=== PATIENT | female | born 1950 | race Two or more races ===

== ENCOUNTER 2019-07-14 13:43 | Emergency (ER) | payer OTHER ==
[~2019-07-14] VITALS: Ht 152.4 cm; Wt 68.9 kg
[~2019-07-14 13:43] MED LIST: HYZAAR; LIPITOR 10MG; METROPOLOL; SYNTHROID
[2019-07-14] MEDS ORDERED: METFORMIN HCL500 M3 PO (14:16)
[2019-07-14] MEDS ORDERED: ZESTORETIC 10-1 EACH PO (14:16)
[2019-07-14] MEDS ORDERED: BONIVA150 MG PO (14:17)
[2019-07-14] MEDS ORDERED: ATORVASTATIN CA10 MG PO (14:17)
[2019-07-14] MEDS ORDERED: ADVIL LIQUI-GE200 MG PO (17:42)
[2019-07-14] MEDS ORDERED: SKELAXIN800 MG PO (17:42)
== END 2019-07-14 18:01 | disposition home or self-care (01) ==
LOC: ER 13:43
DX: M54.5 Low back pain (principal)

== ENCOUNTER → 2019-07-18 | Outpatient (CLI) | payer OTHER ==
[~2019-07-18] MED LIST changes: +ADVIL LIQUI-GE200 MG PO; +ATORVASTATIN CA10 MG PO; +BONIVA150 MG PO; +METFORMIN HCL500 M3 PO; +SKELAXIN800 MG PO; +ZESTORETIC 10-1 EACH PO
== END | disposition home or self-care (01) ==
LOC: MAMO-SONO 08:15
DX: Z12.39 Encounter for other screening for malignant neoplasm of breast (principal); E13.69 Other specified diabetes mellitus with other specified complication; E03.8 Other specified hypothyroidism; M81.8 Other osteoporosis without current pathological fracture; I10 Essential (primary) hypertension; R92.0 Mammographic microcalcification found on diagnostic imaging of breast

== ENCOUNTER 2024-03-01 13:44 | Inpatient (IN) | payer OTHER ==
[~2024-03-01] VITALS: Ht 152.4 cm; Wt 69.9 kg
[2024-03-01] MEDS ORDERED: SYNTHROID75 MCG (14:03)
--- NOTE | 2024-03-01 14:11 | NUR ---
SE RECIBE PTE ALERTA Y ORIENTADO X3. LA MISMA REFIERE DOLOR ABDOMINAL Y VOMITOS EL DIOGO DE PAVEL. PTE ANSIOSA POR HABERSE TOMADO LUCI PEPCID A LAS [id number] Y OTRA A LAS [id number].
[2024-03-01] MEDS ORDERED: ONDANSETRON HCL 2 MG/ML VIAL IV ONE (14:30)
[2024-03-01] MEDS ORDERED: KETOROLAC TROMETHAMINE 30 MG VIAL IV ONE (14:30)
[2024-03-01] MEDS ORDERED: ONDANSETRON HCL 2 MG/ML VIAL ONE (14:43)
[2024-03-01] MEDS ORDERED: KETOROLAC TROMETHAMINE 30 MG VIAL ONE (14:43)
[2024-03-01] MEDS ORDERED: 0.9 % SODIUM CHLORIDE 500 ML IV ONE (14:45)
--- NOTE | 2024-03-01 16:00 | NUR ---
PTE EN ESTUDIO AL MOMENTO DE LA ASHLEY.
--- NOTE | 2024-03-01 16:31 | NUR ---
SE EDUCA ACERCA DE TX ORDENADO Y REFIERE ENTENDER. SE CANALIZA Y COLECTAN MUESTRAS DE LABORATORIO MEDIANTE MEDIDAS ASEPTICAS. SE ADMINISTRAN MEDICAMENTOS HAIR ORDEN MEDICA.
[2024-03-01 16:50] LABS: HEMATOCRIT 39.1 % (36.0-45.00); MEAN CELL VOLUME 93.1 fL (80.00-100.00); MEAN CORPUSCULAR HGB CONC 33.3 g/dl (32.0-36.0); PLATELET COUNT 306 K/uL (150-450); RED CELL DISTRIBUTION WIDTH 13.9 % (11.5-14.5)
[2024-03-01 17:00] LABS: ALBUMIN 4.2 gm/dL (3.4-5.0); BILIRUBIN TOTAL 0.7 mg/dL (0.3-1.2); BILIRUBIN,CONJUGATED 0.16 mg/dL (0.0-0.2); BILIRUBIN,UNCONJUGATED 0.54 mg/dL (0.0-0.6); CALCIUM 9.2 mg/dL (8.5-10.1); CREATININE SERUM 0.84 mg/dL (0.55-1.02); GFR 66.1; GLOBULINA 3.6 G/DL (2.4-3.5); POTASSIUM 3.27 mEq/L (3.5-5.1); TOTAL PROTEIN 7.8 gm/dL (6.4-8.2)
[2024-03-01 17:46] LABS: PH,URINE 5.5 (5.0-8.0); URINE APPEARANCE Clear; URINE BILIRRUBIN Negative (NEGATIVE); URINE BLOOD Moderate; URINE COLOR Yellow; URINE GLUCOSE Negative (NEGATIVE); URINE KETONE Trace (NEGATIVE); URINE LEUKOCYTE Moderate; URINE NITRATE Negative; URINE PROTEIN Negative (NEGATIVE)
[2024-03-01 17:58] LABS: URINE BACTERIA 1116.2 uL (0.0-1933); URINE WBC 473.1 uL (0.0-23.2)
[2024-03-01] MEDS ORDERED: CIPROFLOXACIN IN 5 % DEXTROSE 400 MG/200 ML PIGGYBAG IV ONE ×2 (18:27→18:30)
[2024-03-01] MEDS ORDERED: METRONIDAZOLE/SODIUM CHLORIDE 500 MG/100 ML PIGGYBACK IV ONE ×2 (18:27→18:30)
[2024-03-01] MEDS ORDERED: 0.9 % SODIUM CHLORIDE 50 ML IV SCH (23:00)
[2024-03-01] MEDS ORDERED: ENALAPRILAT DIHYDRATE 1.25 MG/ML VIAL IV PRN (23:15)
[2024-03-01] MEDS ORDERED: INSULIN LISPRO 1,000 UNIT/10 ML UNITS SUBCUTANEO PRN (23:15)
[2024-03-01] MEDS ORDERED: DEXTROSE 50 % IN WATER 0.5 G/ML DISP.SYRIN IV PRN (23:15)
[2024-03-02] MEDS ORDERED: MORPHINE SULFATE 4 MG/ML CARTRIDGE IV SCH (00:16)
[2024-03-02 00:21] LABS: INR 0.98; PARTIAL THROMBOPLASTIN TIME 22.5 SECONDS (22.0-34.0); PROTHROMBIN TIME 10.3 SECONDS (9.0-11.5)
[2024-03-02] MEDS ORDERED: METRONIDAZOLE/SODIUM CHLORIDE 500 MG/100 ML PIGGYBACK IV SCH (05:00)
[2024-03-02] MEDS ORDERED: CIPROFLOXACIN IN 5 % DEXTROSE 200 ML IV SCH (09:00)
[2024-03-03 06:18] LABS: HEMOGLOBIN 11.2 g/dL (12.0-15.00); MEAN CELL VOLUME 91.5 fL (80.00-100.00); MEAN CORPUSCULAR HEMOGLOBIN 31.1 pg (27.00-32.0); PLATELET COUNT 261 K/uL (150-450); RED BLOOD COUNT 3.61 M/uL (4.00-6.00); RED CELL DISTRIBUTION WIDTH 13.9 % (11.5-14.5)
[2024-03-03 06:51] LABS: ALBUMIN 3.1 gm/dL (3.4-5.0); BILIRUBIN TOTAL 0.81 mg/dL (0.3-1.2); CALCIUM 8.2 mg/dL (8.5-10.1); CREATININE SERUM 0.73 mg/dL (0.55-1.02); GFR 77.72; GLOBULINA 2.5 G/DL (2.4-3.5); PHOSPHOROUS 3.3 mg/dL (2.5-4.9); POTASSIUM 3.35 mEq/L (3.5-5.1); TOTAL PROTEIN 5.6 gm/dL (6.4-8.2)
[2024-03-03 06:54] LABS: C-REACTIVE PROTEIN 3.76 MG/DL (0.00-0.29)
[2024-03-04 07:00] LABS: HEMATOCRIT 40.2 % (36.0-45.00); HEMOGLOBIN 13.3 g/dL (12.0-15.00); MEAN CELL VOLUME 93.9 fL (80.00-100.00); MEAN CORPUSCULAR HEMOGLOBIN 31.2 pg (27.00-32.0); MEAN CORPUSCULAR HGB CONC 33.2 g/dl (32.0-36.0); PLATELET COUNT 266 K/uL (150-450); RED BLOOD COUNT 4.28 M/uL (4.00-6.00); RED CELL DISTRIBUTION WIDTH 13.7 % (11.5-14.5)
[2024-03-04 08:54] LABS: PH,URINE 5.5 (5.0-8.0); URINE APPEARANCE Clear; URINE BILIRRUBIN Negative (NEGATIVE); URINE BLOOD Trace; URINE COLOR Yellow; URINE GLUCOSE Negative (NEGATIVE); URINE LEUKOCYTE Small; URINE NITRATE Negative; URINE PROTEIN Negative (NEGATIVE)
[2024-03-04 08:57] LABS: URINE BACTERIA 79.3 uL (0.0-1933); URINE EPITHELIAL CELLS 14.6 uL (0.0-38.8); URINE RBC 57.4 uL (0.0-20.8); URINE WBC 62.8 uL (0.0-23.2)
[2024-03-04] MEDS ORDERED: SUCRALFATE 1 G TABLET PO SCH (09:00)
[2024-03-04] MEDS ORDERED: SIMETHICONE 125 MG CAPSULE PO SCH (09:00)
[2024-03-04] MEDS ORDERED: LACTOBACILLUS ACIDOPHILUS 1 CAP CAP PO SCH (09:00)
[2024-03-04 09:08] LABS: URINE CAST 1.22 uL (0.0-1.40); URINE KETONE 40 (NEGATIVE)
[2024-03-04] MEDS ORDERED: KETOROLAC TROMETHAMINE 30 MG VIAL IV NR (12:45)
[2024-03-05] MEDS ORDERED: ZESTORETIC 10-1 EACH PO (12:21)
[2024-03-05] MEDS ORDERED: NAPR500T14 PO (12:23)
== END 2024-03-05 13:30 | disposition home or self-care (01) | DRG 419 ==
LOC: ER 13:45 → MEDI 22:55
PROVIDERS: Internal Medicine Infectious Disease; Nurse Practitioner Family; Student in an Organized Health Care Education/Training Program; Surgery; ADMIT Internal Medicine; ATTEND Internal Medicine
PROC: BW40ZZZ Ultrasonography of Abdomen (ICD-10-PCS; 2024-03-01)
PROC: BW21ZZZ Computerized Tomography (CT Scan) of Abdomen and Pelvis (ICD-10-PCS; 2024-03-01)
PROC: 0FT44ZZ Resection of Gallbladder, Percutaneous Endoscopic Approach (ICD-10-PCS; principal; 2024-03-03 17:15)
DX: K80.00 Calculus of gallbladder with acute cholecystitis without obstruction (principal); I10 Essential (primary) hypertension; E11.9 Type 2 diabetes mellitus without complications; Z79.4 Long term (current) use of insulin; E78.5 Hyperlipidemia, unspecified; E03.9 Hypothyroidism, unspecified; N73.6 Female pelvic peritoneal adhesions (postinfective); N99.4 Postprocedural pelvic peritoneal adhesions